=== PATIENT | female | born 1970 | race Caucasian/White ===

== ENCOUNTER 2016-12-13 18:27 | Emergency (ER) | payer BC ==
--- NOTE | 2016-12-13 19:14 | ED ---
Psych HPI - General Stated Complaint: Mental Eval Time Seen by Provider: 12/13/16 18:44 Source: patient, RN notes reviewed Mode of arrival: ambulatory Limitations: no limitations - History of Present Illness Initial Comments: 46-year-old female presents emergency Department with police escort for psychiatric evaluation. Patient reportedly had a meltdown today. Patient called police for help. She did verbalize suicidal threats to them though she denies any suicidal ideation at this time. Patient states that she rolled all over her arms degrading things about herself. She states that she also cut her hair off today. Patient states she has a history of depression currently seen a counselor scheduled to see a psychiatrist on . Patient is on Zoloft Ativan states is not helping. Denies any homicidal thoughts. Denies any alcohol or drug abuse. He has no physical complaints. - Related Data Home Medications Medication Instructions Recorded Confirmed Atorvastatin [Lipitor] 10 mg PO HS 12/13/16 12/13/16 Butalb/APAP/Caff 50-325-40Mg 2 tab PO Q4H PRN 12/13/16 12/13/16 [Fioricet 50-325-40] Cholecalciferol (Vitamin D3) 2,000 unit PO HS 12/13/16 12/13/16 [Vitamin D3] LORazepam [Ativan] 1 mg PO TID 12/13/16 12/13/16 Levothyroxine Sodium [Synthroid] 75 mcg PO QAM 12/13/16 12/13/16 Liothyronine Sodium [Cytomel] 5 mcg PO QAM 12/13/16 12/13/16 Sertraline [Zoloft] 50 mg PO HS 12/13/16 12/13/16 Zolpidem [Ambien] 10 mg PO HS 12/13/16 12/13/16 Allergies Allergy/AdvReac Type Severity Reaction Status Date / Time Sulfa (Sulfonamide Allergy Rash/Hives Verified 12/13/16 18:47 Antibiotics) Review of Systems ROS Statement: Those systems with pertinent positive or pertinent negative responses have been documented in the HPI. ROS Other: All systems not noted in ROS Statement are negative. Past Medical History Past Medical History: No Reported History History of Any Multi-Drug Resistant Organisms: None Reported Past Surgical History: Section, Hysterectomy Past Psychological History: Anxiety, Depression Smoking Status: Never smoker Past Alcohol Use History: Occasional Past Drug Use History: None Reported General Exam Limitations: no limitations General appearance: alert, in no apparent distress Head exam: Present: atraumatic, normocephalic, normal inspection ENT exam: Present: normal exam, mucous membranes moist Neck exam: Present: normal inspection, full ROM. Absent: tenderness, meningismus, lymphadenopathy Respiratory exam: Present: normal lung sounds bilaterally. Absent: respiratory distress, wheezes, rales, rhonchi, stridor Cardiovascular Exam: Present: regular rate, normal rhythm, normal heart sounds. Absent: systolic murmur, diastolic murmur, rubs, gallop, clicks Neurological exam: Present: alert, oriented X3, CN II-XII intact Psychiatric exam: Present: depressed, other (Tearful) Skin exam: Present: other (Multiple writings with marker on the extremities) Course Vital Signs 12/13/16 18:43 Temperature 98.5 F Pulse Rate 93 Respiratory 20 Rate Blood Pressure 193/99 O2 Sat by Pulse 97 Oximetry Medical Decision Making - Medical Decision Making 46-year-old female presented for psychiatric evaluation. Patient was not petition. Patient denied any suicidal or homicidal thoughts. Patient was evaluated by psychiatric services case discussed with on-call psychiatrist Dr. Coffman. Patient will be discharged to mother who agrees for contact for safety. Patient has appointment with psychiatrist on return parameters were discussed. - Lab Data Lab Results 12/13/16 Range/Units 19:25 Urine Opiates Screen Not Detected (NotDetected) Ur Oxycodone Screen Not Detected (NotDetected) Urine Methadone Screen Not Detected (NotDetected) Ur Propoxyphene Screen Not Detected (NotDetected) Ur Barbiturates Screen Detected H (NotDetected) U Tricyclic Antidepress Not Detected (NotDetected) Ur Phencyclidine Scrn Not Detected (NotDetected) Ur Amphetamines Screen Not Detected (NotDetected) U Methamphetamines Scrn Not Detected (NotDetected) U Benzodiazepines Scrn Detected H (NotDetected) Urine Cocaine Screen Not Detected (NotDetected) U Marijuana (THC) Screen Not Detected (NotDetected) Disposition Clinical Impression: Depression Disposition: HOME SELF-CARE Condition: Stable Instructions: Depression (ED) Additional Instructions: Please return to the Emergency Department if symptoms worsen or any other concerns. Referrals: Enrike Phelps MD [Primary Care Provider] - 1-2 days Time of Disposition: 20:53
[2016-12-13 21:12] VITALS: BP 179/81; PULSE 85; RESP 18; TEMP 97.6
== END 2016-12-13 21:11 | disposition home or self-care (01) ==
LOC: EC 18:27
DX: F32.9 Major depressive disorder, single episode, unspecified (principal); F41.9 Anxiety disorder, unspecified; Z88.2 Allergy status to sulfonamides; Z79.899 Other long term (current) drug therapy
CPT/HCPCS: 80306; 82075; 99284

== ENCOUNTER → 2018-05-17 | Outpatient (CLI) | payer BC ==
--- NOTE | 2018-05-18 00:06 | MR ---
EXAMINATION TYPE: MR abdomen wo/w con DATE OF EXAM: 05/17/2018 COMPARISON: None HISTORY: Upper abd pain, vomiting, nausea CONTRAST: Standard multiplanar, multisequence MRI departmental protocol utilizing 9 mL intravenous Gadavist cabrera olinium contrast. FINDINGS: Liver shows no focal defect. The bile ducts are not dilated. Spleen appears normal. The sto mach appears normal. There is no evidence of a pancreatic mass. Pancreatic duct is not dilated. There are small low signal foci in the gallbladder on the T2 images consistent with numerous gallstones. G allbladder is not dilated. The kidneys have normal size and contour. There is no hydronephrosis. There is no adrenal mass. There is no evidence of retroperitoneal adenopathy. There is no sign of ascites. There is no evidence of a bowel obstruction. Bowel is not dilated. The contrast images show normal renal hepatic and splenic c ontrast enhancement. There is a large right-sided pericardial fat pad. IMPRESSION: Numerous gallstones. No dilated ducts.
== END | disposition home or self-care (01) ==
LOC: RADMRIMAIN 16:25
PROVIDERS: ATTEND Internal Medicine
DX: K80.20 Calculus of gallbladder without cholecystitis without obstruction (principal)
CPT/HCPCS: 74183; A9585

== ENCOUNTER → 2018-05-18 | Outpatient (CLI) | payer BC ==
--- NOTE | 2018-05-19 00:03 | MR ---
EXAMINATION TYPE: MR pelvis wo/w con DATE OF EXAM: 05/18/2018 COMPARISON: HISTORY: Intra-abdominal and pelvic swelling/mass CONTRAST: Standard multiplanar, multisequence MRI departmental protocol utilizing 9 mL intravenous Gadavist cabrera olinium contrast. FINDINGS: Hysterectomy is noted. Bladder distends smoothly. There is no evidence of bladder mass. The re is no free fluid in the pelvis. There are multiple cysts on both ovaries. These measure up to 2.4 cm. Left ovary measures 5 cm in length. Right ovary measures 3 cm. I see no evidence of a solid pelvi c mass. Contrast images show no pathologic enhancement. I see no enlarged pelvic lymph nodes. The bon y pelvis is intact. Hip joints have normal signal pattern. IMPRESSION: Numerous bilateral ovarian cysts that measure up to 2.4 cm.
== END | disposition home or self-care (01) ==
LOC: RADMRIMAIN 16:33
PROVIDERS: ATTEND Internal Medicine
DX: N83.201 Unspecified ovarian cyst, right side (principal); N83.202 Unspecified ovarian cyst, left side
CPT/HCPCS: 72197; A9585

== ENCOUNTER → 2020-12-02 | Outpatient (CLI) | payer BC ==
--- NOTE | 2020-12-05 13:48 | MM ---
Reason for exam: screening (asymptomatic). Last mammogram was performed 10 years and 5 months ago. History: Patient is postmenopausal. Family history of breast cancer in maternal grandmother at age 52. Took hormonal contraceptives for 6 years beginning at age 18. Physical Findings: A clinical breast exam by your physician is recommended on an annual basis and results should be correlated with mammographic findings. MG Screening Mammo w CAD Bilateral CC and MLO view(s) were taken. Prior study comparison: June 24, 2010, bilateral digital screening mammo w/CAD. May 26, 2009, bilateral digital screening mammogram. The breast tissue is heterogeneously dense. This may lower the sensitivity of mammography. Right increased focal asymmetry with nodules upper outer quadrant posterior position. At least two nodules lateral and upper outer medial to posterior position left breast. ASSESSMENT: Incomplete: need additional imaging evaluation, BI-RAD 0 RECOMMENDATION: Special view mammogram of both breasts. If lesion persists on supplemental views, image directed ultrasound is recommended. [facility] will attempt to contact patient to return for supplemental views and ultrasound if indicated.
== END | disposition home or self-care (01) ==
LOC: RADMAMWWP 13:54
PROVIDERS: ATTEND Family Medicine
DX: Z12.31 Encounter for screening mammogram for malignant neoplasm of breast (principal); Z78.0 Asymptomatic menopausal state; Z80.3 Family history of malignant neoplasm of breast; Z79.3 Long term (current) use of hormonal contraceptives
CPT/HCPCS: 77067

== ENCOUNTER → 2020-12-16 | Outpatient (CLI) | payer BC ==
--- NOTE | 2020-12-16 16:22 | USB ---
EXAMINATION TYPE: US breast limited BILAT DATE OF EXAM: 12/16/2020 COMPARISON: Mammogram same date CLINICAL HISTORY: R92.8 abnormal mammogram. Findings: The lateral right breast and axilla were scanned with ultrasound. No sonographic correlate for possib le asymmetry. The left central breast was scanned with ultrasound. In the left breast at 3:00, there is a 0.6 x 0.5 x 0.4 cm simple cyst which corresponds well in size, location and morphology to the asymmetry on rakesh mogram and is benign. IMPRESSION: Diagnostic right mammogram is recommended in 6 months for the lateral right breast asymmetry for whic h there is no definite sonographic correlate. BI-RADS 3, probably benign.
--- NOTE | 2020-12-17 07:46 | MM ---
Reason for exam: additional evaluation requested from abnormal screening. Last mammogram was performed less than 1 month ago. History: Family history of breast cancer in maternal grandmother at age 52. Took hormonal contraceptives for 6 years beginning at age 18. Physical Findings: Nurse did not find any significant physical abnormalities on exam. MG 3D Work Up W/Cad PANCHITO Bilateral spot compression CC and spot compression MLO view(s) were taken. Prior study comparison: December 02, 2020, bilateral MG screening mammo w CAD. June 24, 2010, bilateral digital screening mammo w/CAD. There are scattered fibroglandular densities. There is an asymmetry in the central left breast at middle depth and ultrasound is recommended. There is a possible asymmetry right outer breast and ultrasound is recommended. Other bilateral asymmetries on the upper outer quadrants are pliable and presumably overlapping tissue. These results were verbally communicated with the patient and result sheet given to the patient on 12/16/20. ASSESSMENT: Incomplete: need additional imaging evaluation, BI-RAD 0 RECOMMENDATION: Ultrasound of both breasts.
== END | disposition home or self-care (01) ==
LOC: RADMAMWWP 14:51
PROVIDERS: ATTEND Family Medicine
DX: N60.02 Solitary cyst of left breast (principal); R92.8 Other abnormal and inconclusive findings on diagnostic imaging of breast; Z80.3 Family history of malignant neoplasm of breast; Z79.3 Long term (current) use of hormonal contraceptives
CPT/HCPCS: 77062; 77066

== ENCOUNTER → 2021-10-01 | Outpatient (CLI) | payer BC ==
--- NOTE | 2021-10-01 15:07 | MM ---
Reason for exam: follow-up at short interval from prior study. Last mammogram was performed 9 months ago. History: Patient is postmenopausal. Family history of breast cancer in maternal grandmother at age 52. Took hormonal contraceptives for 6 years beginning at age 18. Physical Findings: A clinical breast exam by your physician is recommended on an annual basis and results should be correlated with mammographic findings. MG 3D Diag Mammo W/Cad RT CC and MLO view(s) were taken of the right breast. Prior study comparison: December 02, 2020, bilateral MG screening mammo w CAD. The breast tissue is heterogeneously dense. This may lower the sensitivity of mammography. There are benign appearing round calcifications in the right breast. There is no discrete abnormality. Results were given to the patient verbally at the time of the exam. ASSESSMENT: Negative, BI-RAD 1 RECOMMENDATION: Return to routine screening mammogram schedule for both breasts. Back on schedule for November 2021.
== END | disposition home or self-care (01) ==
LOC: RADMAMWWP 14:35
PROVIDERS: ATTEND Family Medicine
DX: R92.1 Mammographic calcification found on diagnostic imaging of breast (principal); Z78.0 Asymptomatic menopausal state; Z80.3 Family history of malignant neoplasm of breast
CPT/HCPCS: 77061; 77065

== ENCOUNTER → 2022-11-22 | Outpatient (CLI) | payer BC ==
--- NOTE | 2022-11-23 09:07 | MM ---
Reason for Exam: Screening (asymptomatic). Last mammogram was performed 1 year(s) and 11 month(s) ago. Patient History: Menarche at age 11. First Full-Term at age 18. Hysterectomy at age 29. Postmenopausal. Hormonal Contraceptives, starting at age 18 for 6 years. Maternal grandmother had breast cancer, age 52. Risk Values: Destini 5 year model risk: 0.8%. NCI Lifetime model risk: 6.2%. Prior Study Comparison: 12/02/2020 Bilateral Screening Mammogram, [facility]. 12/16/2020 Bilateral Diagnostic Mammogram, [facility]. 10/01/2021 Right Diagnostic Mammogram, [facility]. Tissue Density: The breast tissue is heterogeneously dense. This may lower the sensitivity of mammography. Findings: Analyzed By CAD. Chronic nodularity central left breast middle depth. Additional areas of asymmetric density remain unchanged. There is no suspicious group of microcalcifications or new suspicious mass in either breast. Overall Assessment: Benign, BI-RAD 2 Management: Screening Mammogram of both breasts in 1 year. . Patient should continue monthly self-breast exams. A clinical breast exam by your physician is recommended on an annual basis. This exam should not preclude additional follow-up of suspicious palpable abnormalities. Note on Destini scores and lifetime risk: 1. A Destini score greater than 3% is considered moderate risk. If this is the case, consider specialist referral to assess eligibility for a risk reducing agent. 2. If overall lifetime risk for the development of breast cancer is 20% or higher, the patient may qualify for future screening with alternating mammogram and breast MRI. Electronically signed and approved by: Ralph Gupta M.D. Radiologist
== END | disposition home or self-care (01) ==
LOC: RADMAMWWP 15:39
PROVIDERS: ATTEND Family Medicine
DX: Z12.31 Encounter for screening mammogram for malignant neoplasm of breast (principal); Z78.0 Asymptomatic menopausal state; Z80.3 Family history of malignant neoplasm of breast
CPT/HCPCS: 77063; 77067

== ENCOUNTER → 2024-03-14 | Outpatient (CLI) | payer BC ==
--- NOTE | 2024-03-15 20:15 | MM ---
Reason for Exam: Screening (asymptomatic). Last mammogram was performed 1 year(s) and 4 month(s) ago. Patient History: Menarche at age 11. First Full-Term at age 18. Hysterectomy at age 29. Postmenopausal. Hormonal Contraceptives, starting at age 18 for 6 years. Maternal grandmother had breast cancer, age 52. Risk Values: Destini 5 year model risk: 0.8%. NCI Lifetime model risk: 6.1%. Prior Study Comparison: 12/16/2020 Bilateral Diagnostic Mammogram, [facility]. 10/01/2021 Right Diagnostic Mammogram, [facility]. 11/22/2022 Bilateral MG 3D screening mammo w/cad, [facility]. Tissue Density: There are scattered areas of fibroglandular density. Findings: Analyzed By CAD. Unchanged bilateral areas of asymmetric density. There is no suspicious group of microcalcifications or new suspicious mass in either breast. Overall Assessment: Benign, BI-RAD 2 Management: Screening Mammogram of both breasts in 1 year. . Patient should continue monthly self-breast exams. A clinical breast exam by your physician is recommended on an annual basis. This exam should not preclude additional follow-up of suspicious palpable abnormalities. Note on Destini scores and lifetime risk: 1. A Destini score greater than 3% is considered moderate risk. If this is the case, consider specialist referral to assess eligibility for a risk reducing agent. 2. If overall lifetime risk for the development of breast cancer is 20% or higher, the patient may qualify for future screening with alternating mammogram and breast MRI. [facility], , 03/15/2024 8:12 PM. Electronically signed and approved by: Ralph Gupta M.D. Radiologist
== END | disposition home or self-care (01) ==
LOC: RADMAMWWP 13:38
PROVIDERS: ATTEND Family Medicine
CPT/HCPCS: 77063; 77067